=== PATIENT | female | born 1935 | race Native Hawaiian/Other Pacific Islander ===

== ENCOUNTER 2017-09-26 13:08 | Outpatient (CLI) | payer OTHER ==
[2017-09-26] MEDS ORDERED: CLON0.1T16 PO (14:59)
[2017-09-26] MEDS ORDERED: HALOPERIDOL0.5 MG PO (15:41)
[2017-09-26] MEDS ORDERED: LORA0.5T17 PO (15:43)
[2017-09-26] MEDS ORDERED: AMLODIPINE BESYLATE PO (15:46)
[2017-09-26] MEDS ORDERED: CITALOPRAM20 MG PO (15:47)
[2017-09-26] MEDS ORDERED: ALORA0.05 MG TD (15:48)
[2017-09-26] MEDS ORDERED: SIMV40TA57 PO (15:49)
[2017-09-26] MEDS ORDERED: MYLANT3 PO (16:03)
[2017-10-03] MEDS ORDERED: HYDR25CA25 PO (10:43)
[2017-10-03] MEDS ORDERED: LEXAPRO20 MG PO (10:43)
[2017-10-03] MEDS ORDERED: POTA10CA3 PO (10:43)
[2017-10-03] MEDS ORDERED: BUSPIRONE10 MG PO (10:43)
[2017-10-03] MEDS ORDERED: LISI20TA11 PO (10:43)
[2017-10-03] MEDS ORDERED: LEVO0.0529 PO (10:43)
[2017-10-03] MEDS ORDERED: SOD CHLORIDE1 GM PO (10:43)
== END 2017-09-26 13:43 | disposition short-term general hospital (02) ==
LOC: AMB 13:08
DX: R41.82 Altered mental status, unspecified (principal); E87.5 Hyperkalemia
CPT/HCPCS: A0425; A0429